=== PATIENT | male | born 1960 | race Caucasian/White ===

== ENCOUNTER → 2016-07-16 | Outpatient (CLI) | payer BC ==
[~2016-07-16] MED LIST: IOHEXOL 180 MG/ML 10 ML VIAL. ONE; methylPREDNISolone ACETATE 40 MG/ML VIAL. ONE; methylPREDNISolone ACETATE 80 MG/ML VIAL. ONE
--- NOTE | 2016-07-17 11:17 | PAIN ---
DATE OF SERVICE: 07/16/2016 DIAGNOSES: Lumbar radiculopathy with lumbar degenerative disk disease and lumbar herniated disk. HISTORY OF PRESENT ILLNESS: The patient is a 56-year-old male who returns for followup status post lumbar epidural injection x 1. Patient reports 50% improvement after first injection. The pain is in the low back and right lower extremity. Patient reports that he still has some significant pain there but is much better than it was, much less intense. He has increased his activity with greater comfort and greater ease with less difficulty, doing his daily activities without thinking about having to be limited by his pain. Patient reports he is sleeping better at night. Reports no new motor or sensory deficits, no new bowel or bladder incontinence. No other complaints. He is very pleased with his progress thus far. The patient's old chart was reviewed as his current medication regimen and updated. Current review of systems is updated today as well. PHYSICAL EXAMINATION: VITAL SIGNS: Blood pressure 136/88, pulse 80, respirations 18, temperature 97.8 degrees Fahrenheit, height is 5 feet 7 inches, weighs 166 pounds. GENERAL: The patient is awake, alert, oriented and appropriate, very pleasant demeanor. HEENT: Normocephalic, atraumatic. Extraocular movements are intact and symmetrical. Oral cavity: Mucous membranes moist and pink. Dentition is intact. NECK: Shows anterior throat supple without palpable lymphadenopathy noted. Swallow reflex is symmetrical. CHEST: Shows normal on inspection. Breath sounds are clear to auscultation bilaterally. HEART: Shows S1, S2 clear. ABDOMEN: Soft, nontender, nondistended. BACK: Shows grossly midline. Lumbar paraspinous musculature shows some mild tenderness with palpation without significant radiation or asymmetry. No atrophy or hypertrophy. Muscles are firm but supple, no tenderness over the sacrum or sacroiliac regions. EXTREMITIES: Lower extremities show deep tendon reflexes at 2+ in the patellar and tendo calcaneus tendons at 1+. Motor exam is strong with 5/5 dorsiflexion and extension on the left, approximately 4/5 still on the right ankle, but intact and strong bilaterally. PLAN: Options were discussed with the patient. We will proceed with a second lumbar epidural steroid injection today with fluoroscopic guidance. Risks were again discussed including, but not limited to bleeding, infection, possibility of epidural hematoma and subsequent neurologic compromise, dural puncture, headaches, spinal cord and/or nerve damage, side effects of steroid medication and poor results regarding pain control. The patient understands and wishes to proceed. The patient will return to clinic in approximately 2 weeks for followup, was counseled on return appointment, activity level and side effects to be aware of. DIAGNOSIS: Lumbar radiculopathy with lumbar degenerative disk disease and lumbar herniated disk. Procedure: Lumbar epidural steroid injection, translaminar approach at the L4-L5 level using C-arm fluoroscopic guidance under sterile prep and drape with local anesthetic MEDICATIONS INJECTED: Depo-Medrol 120 mg plus 10 mL of preservative-free normal saline and 2 mL of Isovue contrast. CONDITION AT DISCHARGE: Stable. The patient tolerated the procedure well, had no complications. JEANETTE NICOLAS MD DR: GERMAIN/isabela JOB#: [id number] / [id number]
== END | disposition home or self-care (01) ==
LOC: PNCL 13:30
PROVIDERS: ATTEND Anesthesiology
DX: M51.16 Intervertebral disc disorders with radiculopathy, lumbar region (principal)
CPT/HCPCS: 62323; J1030; J1040

== ENCOUNTER → 2018-02-24 | Outpatient (CLI) | payer BC ==
--- NOTE | 2018-02-24 13:28 | KCIC ---
EXAM: 3 views right foot DATE: 02/24/2018 12:00 AM INDICATION: Right foot pain COMPARISON: No Prior FINDINGS: No evidence of acute fracture or dislocation. Joint spaces are preserved without significant degenerative/proliferative change. Small plantar calcaneal enthesopathy.Atherosclerotic vascular calcifications are seen. Type II navicular. IMPRESSION: No evidence of acute fracture or dislocation. Atherosclerotic vascular calcifications are seen. Small plantar calcaneal enthesopathy. Electronically signed by: Emeterio Hahn MD (02/24/2018 1:25 PM) [id number]
== END | disposition home or self-care (01) ==
LOC: KCIC 09:53
PROVIDERS: ATTEND Family Medicine
DX: M77.31 Calcaneal spur, right foot (principal); I70.298 Other atherosclerosis of native arteries of extremities, other extremity; M17.12 Unilateral primary osteoarthritis, left knee
CPT/HCPCS: 73630

== ENCOUNTER → 2018-03-27 | Outpatient (CLI) | payer BC ==
--- NOTE | 2018-03-27 11:34 | KCIC ---
EXAM: MRI right foot, attention to midfoot DATE: 03/27/2018 8:00 AM CLINICAL HISTORY: Medial arch pain. COMPARISON: Radiographs 02/24/2018 TECHNIQUE: Multiplanar multisequence MR imaging of the right midfoot was performed without IV contrast. FINDINGS: Visualized portions of the medial flexor tendons are normal in signal and morphology without tenosynovitis. The peroneus longus is increased in signal and an thickened at the level of the cuboid tunnel consistent with moderate tendinosis. Mild tenosynovitis. The extensor tendons are also normal in signal and morphology. The Achilles tendon is not included in the [id number]. The plantar fascia is normal in signal and morphology. The visualized medial, syndesmotic and lateral ankle ligaments are intact. The Lisfranc ligament is intact. T1 marrow signal is grossly preserved. Focal marrow edema at the lateral aspect of the talar dome likely degenerative. No evidence for osteochondral lesion. There is minimal edema within the quadratus plantae, possibly mild strain. No definite fatty atrophy of intrinsic muscles of the foot. Visualized portions of the tarsal tunnel are normal without associated mass lesion. IMPRESSION: 1. Minimal edema seen within the quadratus plantae, possibly mild strain. 2. Moderate tendinosis within the peroneus longus at the level of the cuboid tunnel. 3. Otherwise visualized flexor and extensor tendons are normal in signal and morphology. 4. The Lisfranc ligament is intact. Electronically signed by: Emeterio Hahn MD (03/27/2018 11:30 AM) [facility]-[email or web address]
== END | disposition home or self-care (01) ==
LOC: KCIC MRI 07:38
PROVIDERS: ATTEND Podiatrist
DX: M77.51 Other enthesopathy of right foot and ankle (principal); M65.871 Other synovitis and tenosynovitis, right ankle and foot; R60.0 Localized edema; M17.12 Unilateral primary osteoarthritis, left knee
CPT/HCPCS: 73718

== ENCOUNTER → 2018-08-18 | Outpatient (CLI) | payer BC ==
--- NOTE | 2018-08-18 12:58 | KCIC ---
EXAM: Chest, 2 views. HISTORY: Chest pain. COMPARISON: None. FINDINGS: 2 views of the chest are obtained. There is no infiltrate, pleural effusion or pneumothorax. The heart is normal in size. IMPRESSION: No acute pulmonary finding. Electronically signed by: Dinorah Bautista MD (08/18/2018 12:55 PM) [facility]-[email or web address]
== END | disposition home or self-care (01) ==
LOC: KCIC 12:10
PROVIDERS: ATTEND Family Medicine
DX: R07.89 Other chest pain (principal)
CPT/HCPCS: 71046

== ENCOUNTER → 2020-09-08 | Outpatient (CLI) | payer OTHER ==
--- NOTE | 2020-09-08 10:31 | KCIC ---
EXAM: CT Chest without IV contrast INDICATION: Reason: Dyspnea, chest pressure post Covid. / Spl. Instructions: / History: Covid positi ve 7-8 weeks ago. Some SOA TECHNIQUE: Multi-detector row CT images were acquired from the thoracic inlet through the upper abdo men without the use of IV contrast. Sagittal and coronal images were acquired from the transaxial ciro a. All CT scans performed at this facility utilize dose optimization techniques as appropriate to the exam, including the following: Automated exposure control and adjustment of the mA and/or KV accordi ng to patient size (this includes techniques or standardized protocols for targeted exams where dose is indication/reason for exam). COMPARISON: None FINDINGS: The absence of IV contrast limits evaluation of soft tissue pathology. CARDIOVASCULAR: Unremarkable MEDIASTINUM & PRAKASH: No adenopathy or masses. LUNGS: Lungs show patchy groundglass opacities in the periphery of the bilateral upper lobes and in t he right lower lobe. PLEURAL SPACE: No pleural effusions or pneumothorax. OSSEOUS & SOFT TISSUE: Minimal disc degenerative changes in the midthoracic spine, notably at T8-T9 a nd T9-T10 where right anterolateral osteophytic spurs are noted. ABDOMEN: The visualized portions of the upper abdomen are unremarkable. IMPRESSION: Patchy groundglass opacities in the lungs bilaterally could reflect the sequelae of atypical pneumoni a. No acute abnormalities otherwise noted on noncontrast chest CT.. Electronically signed by: Mima Hammer MD (09/08/2020 10:28 AM) [id number]
== END ==
LOC: KCIC CT 08:46
PROVIDERS: ATTEND Family Medicine
DX: R06.00 Dyspnea, unspecified (principal); Z86.19 Personal history of other infectious and parasitic diseases
CPT/HCPCS: 71250

== ENCOUNTER → 2020-12-26 | Outpatient (CLI) | payer OTHER ==
--- NOTE | 2020-12-26 13:44 | KCIC ---
EXAM: Bilateral knees, 3 views. HISTORY: Bilateral knee pain. COMPARISON: 05/13/2017. FINDINGS: On the right, there is mild medial compartmental joint space narrowing. There is slight moris us angulation. No fractures are identified. There is a small joint effusion. On the left, there is mild medial compartmental joint space narrowing. There is mild varus angulation and lateral subluxation of the tibia. No fractures are identified. There is a trace joint effusion. IMPRESSION: 1. Mild bilateral medial compartmental osteoarthritis with mild varus angulation bilaterally. Electronically signed by: Abimbola Pruitt MD (12/26/2020 12:54 PM) [id number]
== END ==
LOC: KCIC 09:40
PROVIDERS: ATTEND Family Medicine
DX: S83.142A Lateral subluxation of proximal end of tibia, left knee, initial encounter (principal); M17.0 Bilateral primary osteoarthritis of knee; M25.461 Effusion, right knee; X58.XXXA Exposure to other specified factors, initial encounter; Y93.89 Activity, other specified; Y92.89 Other specified places as the place of occurrence of the external cause; Y99.8 Other external cause status
CPT/HCPCS: 73562-50

== ENCOUNTER → 2021-04-04 | Outpatient (CLI) | payer OTHER ==
--- NOTE | 2021-04-04 19:54 | KCIC ---
Chest radiograph 04/04/2021 2:21 PM INDICATION: Bronchitis, cough history of Covid pneumonia. COMPARISON: CT chest 09/08/2020 TECHNIQUE: Frontal and lateral views of the chest are provided. FINDINGS: The cardiomediastinal silhouette is within normal limits. There are no pleural effusions. There is no pulmonary vascular congestion. There is no pneumothorax. The lungs are clear. No significant osseous abnormality is identified. IMPRESSION: No acute cardiopulmonary process. Electronically signed by: Rhonda Coleman MD (04/04/2021 7:51 PM) [facility]
== END ==
LOC: KCIC 14:17
PROVIDERS: ATTEND Family Medicine
DX: J40 Bronchitis, not specified as acute or chronic (principal); R05 Cough; Z86.16 Personal history of COVID-19
CPT/HCPCS: 71046